=== PATIENT | female | born 1960 | race Caucasian/White ===

== ENCOUNTER 2018-11-17 20:25 | Emergency (ER) | payer BC ==
[~2018-11-17] VITALS: Ht 157.5 cm; Wt 98.7 kg
[2018-11-17 20:28] VITALS: BP 137/73; PULSE 110; RESP 22; Ht 157.5 cm; Wt 98.7 kg
[2018-11-17] MEDS ORDERED: OSLT75C PO (20:58)
[2018-11-17] MEDS ORDERED: CETI10CA PO (20:58)
[2018-11-17] MEDS ORDERED: BENZ-6 PO (20:58)
[2018-11-17] MEDS ORDERED: IBUP-1542 PO (20:58)
[2018-11-17] MEDS ORDERED: ACETAMINOPHEN 325 MG TAB PO ONE (21:00)
--- NOTE | 2018-11-17 21:06 | ERD ---
ER Documentation Chief Complaint Chief Complaint fever/CARRILLO/body aches/cough x2 days. last ibuprofen 1800 HPI 58-year-old female presents here to emergency department for complaints of fever body aches cough for 2 days, patient son was diagnosed with influenza yesterday, started to have the cough and fevers today, was taking ibuprofen at home to help with symptoms with mild relief. Patient does not any other symptoms. Denies any chest pain or palpitations. ROS All systems reviewed and are negative except as per history of present illness. Medications Home Meds Active Scripts Ibuprofen* (Motrin*) 600 Mg Tab, 600 MG PO Q6H PRN for PAIN AND OR ELEVATED TEMP, #30 TAB Prov:IVONNE CONTRERAS [employer] 11/17/18 Cetirizine Hcl* (Zyrtec*) 10 Mg Capsule, 10 MG PO DAILY, #30 TAB.CHEW Prov:IVONNE CONTRERAS [employer] 11/17/18 Benzonatate* (Tessalon Perle*) 100 Mg Capsule, 100 MG PO Q8H PRN for COUGH, #30 CAP Prov:IVONNE CONTRERAS. [employer] 11/17/18 Oseltamivir Phosphate* (Tamiflu*) 75 Mg Capsule, 75 MG PO BID for 5 Days, CAP Prov:IVONNE CONTRERAS [employer] 11/17/18 Allergies Allergies: Coded Allergies: No Known Allergy (Unverified , 04/12/12) PMhx/Soc History of Surgery: Yes (APPY CHILD) Anesthesia Reaction: No Hx Neurological Disorder: No Hx Respiratory Disorders: No Hx Cardiac Disorders: Yes (HTN) Hx Psychiatric Problems: No Hx Miscellaneous Medical Probl: No Hx Alcohol Use: No Hx Substance Use: No Hx Tobacco Use: Yes Smoking Status: Current every day smoker FmHx Family History: No diabetes, No coronary disease, No other Physical Exam Vitals Vital Signs Date Temp Pulse Resp B/P (MAP) Pulse Ox O2 O2 Flow FiO2 Time Delivery Rate 11/17/18 100.9 110 22 137/73 97 20:28 (94) Physical Exam GENERAL: The patient is well developed and appropriate for usual state of health, in no apparent distress. CHEST: Clear to auscultation bilaterally. There are no rales, wheezes or rhonchi. HEART: Regular rate and rhythm. No murmurs, clicks, rubs or gallops. No S3 or S4. ABDOMEN: Soft, nontender and nondistended. Good bowel sounds. No rebound or guarding. No gross peritonitis. No gross organomegaly or masses. No Messina sign or McBurney point tenderness. BACK: No midline or flank tenderness. EXTREMITIES: Equal pulses bilaterally. There is no peripheral clubbing, cyanosis or edema. No focal swelling or erythema. Full range of motion. Grossly neurovascularly intact. NEURO: Alert and oriented. Cranial nerves 2-12 intact. Motor strength in all 4 extremities with 5/5 strength. Sensation grossly intact. Normal speech and gait. SKIN: There is no apparent rash or petechia. The skin is warm and dry. HEMATOLOGIC AND LYMPHATIC: There is no evidence of excessive bruising or lymphedema. No gross cervical, axillary, or inguinal lymphadenopathy. Results 24 hrs Current Medications Medications Dose Sig/Frederic Start Time Status Last (Trade) Ordered Route PRN Stop Time Admin Dose Reason Admin 650 mg ONCE ONCE 11/17/18 DC 11/17/18 Acetaminophen PO 21:00 11/17/18 21:01 (Tylenol 21:01 Tab) Patient was given medicines for fever control here in the emergency department. After treatment, patient temperature improved and lower. Patient appears well and is hemodynamically stable. Procedures/MDM Medical Decision Making: Patient symptoms are most likely consistent with no eczema. There is low suspicion for Pneumonia at this time since patients lungs sounds are clear, patient O2 saturation is normal and patient doesnt show any respiratory distress. Radiology exams not indicated at this time.. There is low suspicion for other cardiopulmonary emergencies at this time such as CHF, Pulmonary Embolism, Pneumothorax, Aortic Aneurysm or any other cardiopulmonary emergencies at this time. There is low suspicion for sepsis. Patient appears well and is hemodynamically stable. Fever is controlled with medicines. Disposition: Home. Condition: Stable Prescriptions: Ibuprofen Zyrtec Tessalon Perles Tamiflu Instructions: Patient is advised to take medications as prescribed. Patient is advised to rest. Patient advised to increase fluid intake, do humidifier at home and if possible, do salt water gargles. Patient is advised that if symptoms are worse, shortness of breath, uncontrolled fever, stridor, vomiting, worst signs and symptoms to return to emergency department immediately. Otherwise, patient is advised to follow up with primary doctor in 5-7 days. Disclaimer: Inadvertent spelling and grammatical errors are likely due to EHR/dictation software use and do not reflect on the overall quality of patient care. Also, please note that the electronic time recorded on this note does not necessarily reflect the actual time of the patient encounter. Departure Diagnosis: Primary Impression: Influenza-like symptoms Condition: Stable Patient Instructions: Influenza (Adult) IVONNE CONTRERAS NP Nov 17, 2018 21:06
== END 2018-11-17 21:16 | disposition home or self-care (01) ==
LOC: FTE 20:25
DX: R50.9 Fever, unspecified (principal); I10 Essential (primary) hypertension; F17.210 Nicotine dependence, cigarettes, uncomplicated; R51 Headache; R05 Cough
CPT/HCPCS: Z7502; Z7610; 99283